=== PATIENT | female | born 1985 | race Caucasian/White ===

== ENCOUNTER 2021-05-13 15:39 | Emergency (ER) | payer MEDICAID ==
[~2021-05-13] VITALS: Ht 160 cm; Wt 90.0 kg
[2021-05-13 16:22] VITALS: BP 147/95; PULSE 73; TEMP 98.3
== END 2021-05-13 17:51 | disposition left against medical advice (07) ==
LOC: COL.ER 15:39
DX: R51.9 Headache, unspecified (principal); R11.0 Nausea

== ENCOUNTER → 2022-01-12 | Outpatient (REF) | LOC: COL.CARD 13:12 | DX: R00.2 Palpitations (principal) ==

== ENCOUNTER 2022-05-16 09:30 | Emergency (ER) | payer MEDICAID ==
[~2022-05-16] VITALS: Ht 160 cm; Wt 85.0 kg
[2022-05-16 09:42] VITALS: TEMP 97.8
[2022-05-16 09:57] LABS: BASO % 0.5 % (0.0-2.0); EOS # 0.1 K/mm3 (0.0-0.7); EOS % 1.9 % (0.0-4.0); GRAN # 3.5 K/mm3 (1.4-6.5); HEMOGLOBIN 13.1 g/dl (12.5-16.0); LYMPH # 2.3 K/mm3 (1.2-3.4); LYMPH % 35.5 % (20.0-51.0); MEAN CELL VOLUME 94 fl (80.0-100.0); MEAN CORPUSCULAR HEMOGLOBIN 34 pg (27-31); MEAN CORPUSCULAR HGB CONC 36 g/dl (33.0-37.0); MEAN PLATELET VOLUME 9.1 fl (7.4-10.4); MONO # 0.4 K/mm3 (0.1-0.6); MONO % 6.9 % (1.7-9.3); PLATELET COUNT 369 K/mm3 (130-400); REDCELL DISTRIBUTION WIDTH-CV 12.1 % (11.5-14.5)
[2022-05-16 09:58] LABS: HEMATOCRIT 36.6 % (37.0-47.0)
[2022-05-16 10:02] LABS: INR 0.9 (0.8-3.0); PROTHROMBIN TIME 10.8 SECONDS (9.7-12.8)
[2022-05-16 10:05] LABS: PARTIAL THROMBOPLASTIN TIME 30.7 SECONDS (26.0-37.0)
[2022-05-16 10:10] LABS: ALBUMIN 4.1 gm/dL (3.5-5.0); BILIRUBIN,TOTAL 0.8 mg/dL (0.2-1.2); CALCIUM 9.4 mg/dL (8.4-10.2); CREATININE, serum 0.76 mg/dL (0.57-1.11); POTASSIUM 3.8 mmol/L (3.5-4.5); TOTAL PROTEIN 7.6 gm/dL (6.2-8.1)
[2022-05-16 10:16] LABS: TROPONIN-I 0.01 ng/mL (0.00-0.033)
[2022-05-16 11:39] VITALS: BP 136/88; PULSE 88
== END 2022-05-16 11:40 | disposition home or self-care (01) ==
LOC: COL.ER 09:30
PROVIDERS: Family Medicine
DX: R00.0 Tachycardia, unspecified (principal); F17.210 Nicotine dependence, cigarettes, uncomplicated; Z86.79 Personal history of other diseases of the circulatory system; Z28.310 Unvaccinated for COVID-19
CPT/HCPCS: J1790